=== PATIENT | female | born 1935 | race Caucasian/White ===

== ENCOUNTER 2024-01-08 14:37 | Emergency (ER) | payer OTHER, SELFPAY ==
[2024-01-08 14:49] VITALS: BP 170/64
--- NOTE | 2024-01-08 16:20 | ED.GENMED ---
History of Present Illness
<Jenifer Ribeiro PA-C - Last Filed: 01/08/24 19:40>
General
Chief Complaint: Musculo-Skeletal Complaint
Source: patient
Exam Limitations: none
Time Seen by Provider: 01/08/24 16:18
Nursing documentation reviewed up to this point in time: agreed with
Travel History
Have you had any contact with someone who has COVID-19?: No
Do you have any symptoms of coronavirus? Fever > 100 degrees, chills, cough, shortness of breath, sore throat, loss of taste or smell, muscle aches, or headache?: No
History of Present Illness
History of Present Illness:
88-year-old female with a past medical history of hypertension, bilateral hip replacements, presenting to the emergency department today with atraumatic right hip pain for the past 3 months. She states that over the past week, has been worsening
pain and wants she has a lot of pain with weightbearing, but no pain at rest. Patient denies any recent falls, any trauma to the hip. Patient denies any recent hip injections, any recent surgeries. Patient denies any fevers or chills, fatigue,
nausea or vomiting. Patient saw her primary care provider at the end of last week for this issue, who prescribed her oxycodone. Patient states that she was going on a long trip and needed something for her pain control during this time. Patient
was given oxycodone and this helped her symptoms initially, however she did have persistent pain. Patient has tried Tylenol which is also not helped her pain. Patient has not seen an orthopedist since her hip replacement many years ago.
Past History
<Jenifer Ribeiro PA-C - Last Filed: 01/08/24 19:40>
Past History
ED Past Medical History: HTN
ED Past Surgical History: None
Patient has exhibited threatening behavior?: No
Social History
Tobacco: Non-smoker
Alcohol: None
Drug: None
Review of Systems
<Jenifer Ribeiro PA-C - Last Filed: 01/08/24 19:40>
Review of Systems
All Other Systems: ROS reviewed and negative except as documented in HPI and ROS
Phy Exam
<Jenifer Ribeiro PA-C - Last Filed: 01/08/24 19:40>
Physical Exam
Physical Exam:
General: Patient is well-appearing in no acute distress
Skin: Warm and dry, no rashes or lesions overlying right hip or right superior thigh.
Cardiac: Regular rate
Peripheral Vascular: 2+ DP pulses bilaterally. No lower extremity edema
Pulm: Normal respiratory effort
Abdomen: No abdominal tenderness
Musculoskeletal: tenderness to palpation at the right hip joint, no tenderness to palpation of the right knee joint. significant pain with any range of motion
Neuro: AAOx3.
Course
<Jenifer Ribeiro PA-C - Last Filed: 01/08/24 19:40>
Orders/Labs/Results
Orders:
Orders
01/08/24 16:52
Oxycodone [Roxicodone] 5 mg PO NOW STA
CR Hip - RT w/wo Pel 2-3 Vw* Urgent
Comment:
Reason For Exam: right hip pain
Include a pelvis x-ray?: Yes
01/08/24 18:32
Vital Signs- Treatment ONCE
Frequency: Once
Comment: blood pressure check
Vital Signs
Initial and Last Documented VS:
Initial Vital Signs
Temp Pulse Resp Pulse Ox
98.4 F 55 16 98
01/08/24 14:47 01/08/24 14:47 01/08/24 14:47 01/08/24 14:47
Last Documented Vital Signs
Temp Pulse Resp BP Pulse Ox
98.4 F 49 16 178/69 98
01/08/24 14:47 01/08/24 19:14 01/08/24 14:47 01/08/24 19:14 01/08/24 14:47
<Alok Orantes DO - Last Filed: 01/08/24 18:33>
Orders/Labs/Results
Orders:
Orders
01/08/24 16:52
Oxycodone [Roxicodone] 5 mg PO NOW STA
CR Hip - RT w/wo Pel 2-3 Vw* Urgent
Comment:
Reason For Exam: right hip pain
Include a pelvis x-ray?: Yes
01/08/24 18:32
Vital Signs- Treatment ONCE
Frequency: Once
Comment: blood pressure check
Vital Signs
Initial and Last Documented VS:
Initial Vital Signs
Temp Pulse Resp Pulse Ox
98.4 F 55 16 98
01/08/24 14:47 01/08/24 14:47 01/08/24 14:47 01/08/24 14:47
Last Documented Vital Signs
Temp Pulse Resp BP Pulse Ox
98.4 F 49 16 178/69 98
01/08/24 14:47 01/08/24 19:14 01/08/24 14:47 01/08/24 19:14 01/08/24 14:47
<Jenifer Ribeiro PA-C - Last Filed: 01/08/24 19:40>
MDM/Problems Addressed
Differential Diagnosis Includes:
ddx include musculoskeletal sprain/strain, osteoarthritis, rheumatoid arthritis, hip fracture, hip dislocation
MDM/Problems Addressed:
hip pain

will obtain x-ray and treat pain
Chronic conditions affecting care: HTN
Acute Exacerbation and/or Progression of Chronic Illness: HTN
<Jenifer Ribeiro PA-C - Last Filed: 01/08/24 19:40>
*Radiology
Radiology exam reviewed: preliminary read by ED provider (no acute fracture or dislocation)
*Pulse Oximetry
Patient hypoxic: no
*Critical Care Note
Total Time (30-74mins, 75-104mins- exclusive of procedures): Not Applicable
Data Reviewed
Review of Other/Old Records Reveals: Records (Reviewed records from ER physician documentation on 02/24/2022)
Source: patient
<Jenifer Ribeiro PA-C - Last Filed: 01/08/24 19:40>
Patient Management
Escalation/DeEscalation of care consider admission/obs:
88-year-old female presenting emergency department today with atraumatic right hip pain for the past 3 months, however has been worsening for the past week. On exam, patient has no rash overlying the right hip. Patient has significant right hip
pain with palpation and with range of motion. Patient is able to ambulate with a walker without difficulty. Patient was treated with 1 oxycodone. Reevaluation, patient feels much better and wants to go home. Patient expressed some concern about
her blood pressure. We rechecked her blood pressure is still elevated, we advised primary care provider follow-up on this issue, as well as follow-up with primary for possible PT evaluation and continued therapy for her chronic hip pain. Patient
also given referral for orthopedist. Patient stable for discharge.
ED Attending Note
<Jenifer Ribeiro PA-C - Last Filed: 01/08/24 19:40>
-
Portions of this chart may have been created with voice recognition software.� Occasional wrong word or��sound alike� substitutions may have occurred due to the inherent limitations of voice recognition software.
<Alok Orantes DO - Last Filed: 01/08/24 18:33>
ED Attending Note
Patient seen and examined by attending physician: Yes
I performed the substantive portion of visit, reviewed & personally made and approve the management plan that is documented in note by myself or MICHELLE.: Yes
ED Attending Note:
I have seen and evaluated the patient with a [id number] encounter. I have spoken to the advance practicer provider and involved in the medical history, the physical exam, medical decision making.
Evaluation and management service: agree unless noted differently below.
Results interpretation: agree unless noted differently below.
Focused HPI: 88-year-old female presenting with right hip and thigh pain. Patient states has been going on for a few months now. Her PCP wrote her for oxycodone to get through the car ride for recent trip. Patient states the medicine did help.
However, the pain has reoccurred. She denies trauma or overuse
Physical exam: Sitting in bed comfortably. On my exam, patient had received oxycodone and feeling better. No tenderness to deep venous palpation
Medical Decision Making: We discussed likely musculoskeletal pain. X-ray negative for fracture or malalignment of hardware. Discussed follow-up with PCP to discuss physical therapy
Discharge Plan
Departure
Patient Disposition: Home (Routine Discharge)
Date of Disposition: 01/08/24
Time of Disposition: 18:33
Patient with high blood pressure during this ER visit?: Yes
Condition: Good
Discharge Problem:
Pain of right hip
Instructions: Hip Pain (DC), BLOOD PRESSURE
Prescriptions:
No Action
multivitamin with folic acid [Tab-A-Lisandro] 1 TABLET tablet
1 tab PO DAILY
sennosides [senna] 1 TABLET tablet
1 tab PO BID 0RF
acetaminophen 325 MG tablet
650 mg PO Q4HPRN PRN (Reason: mild pain/VEGA/temp> 100.4F) 0RF
polyethylene glycol 3350 17 GRAMS powder in packet
17 grams PO DAILY 0RF
aspirin 325 MG tablet,delayed release (DR/EC)
325 mg PO DAILY 0RF
Rx Instructions:
until 10/11 (4 weeks DVT prophylaxis per Orthopedics)
bisacodyl [OneLAX Bisacodyl] 10 MG suppository
10 mg WA DAILYPRN PRN (Reason: constipation) 0RF
docusate sodium 100 MG capsule
100 mg PO BID 0RF
alum-mag hydroxide-simeth [Mag-Al Plus] 30 ML suspension
30 ml PO Q4HPRN PRN (Reason: indigestion) 0RF
Referrals:
Andrei Olivera MD [Active] - Call in 1-3 days for appt
Leo Douglass MD [Family Provider] -
Activity Restrictions/Additional Instructions:
Please call PCP for an appointment for a follow up on your blood pressure and possible physical therapy referral.
Please return to the ER for any concerns.
Interventions
Interventions:
*General Assessment Last Done: 01/08/24 19:15
*ED COVID-19 Vaccine History Last Done: 01/08/24 14:47
*Nursing Disposition Last Done: 01/08/24 19:15
ED-Musculoskeletal Assessment Last Done: 01/08/24 17:00
Discharge Date and Time
Discharge Date/Time: 01/08/24 19:16
[2024-01-08] MEDS: ROXICODONE 5 MG PO (16:58)
[2024-01-08 19:14] VITALS: BP 178/69
== END 2024-01-08 19:16 | disposition home or self-care (01) ==
LOC: EMR 14:37
PROVIDERS: EMERGENCY PHYSICIAN Student in an Organized Health Care Education/Training Program; FAMILY PHYSICIAN Internal Medicine
DX: M25.551 Pain in right hip (principal); G89.29 Other chronic pain; I10 Essential (primary) hypertension
CPT/HCPCS: 99283; 73502

== ENCOUNTER 2024-03-06 18:22 | Inpatient (IN) | payer OTHER, SELFPAY ==
[2024-03-06] VITALS (8 sets, daily range): BP systolic 137–162; BP diastolic 45–78; BMI 20.9
[2024-03-06 15:39] LABS: % Basophils 0.4 % (0-2); % Eosinophils 1.3 % (0-6); % Immature Granulocytes 0.3 % (0-0.5); % Monocytes 7.9 % (1.7-9.3); % Neutrophils 79.1 % (42.2-75.2); Absolute Eosinophils 0.1 10^3/uL (0-0.7); Absolute Lymphocytes 0.7 10^3/uL (1.2-3.4); Absolute Monocytes 0.5 10^3/uL (0.1-0.6); Absolute Neutrophils 5.3 10^3/uL (1.4-6.5); Hematocrit 34.7 % (37.0-47.0); Hemoglobin 11.9 g/dL (12.0-16.0); Mean Corp Hgb Conc. 34.3 g/dL (33.0-37.0); Mean Corpuscular Volume 90.4 fL (81.0-99.0); Nucleated Red Blood Cells % 0 %; Platelet Count 211 10^3/uL (130-400); Red Blood Cell Count 3.84 10^6/uL (4.20-5.40); Red Cell Dist. Width 12.3 % (11.5-14.5); White Blood Cell Count 6.7 10^3/uL (4.8-10.8)
[2024-03-06 15:56] LABS: ALT (SGPT) 28 U/L (0-35); AST (SGOT) 36 U/L (14-36); Albumin 4.2 g/dl (3.5-5.0); Alkaline Phosphatase 110 U/L (38-126); Blood Urea Nitrogen 19 mg/dl (7-17); Calcium 9.3 mg/dl (8.4-10.2); Carbon Dioxide 21 mmol/L (22-30); Chloride 97 mmol/L (98-107); Glucose 98 mg/dl (70-99); Lipase 71 U/L (23-300); Potassium 4.6 mmol/L (3.5-5.1); Sodium 124 mmol/L (135-145); Total Bilirubin 0.6 mg/dl (0.2-1.3); Total Protein 6.8 g/dl (6.3-8.2); eGFR > 60.00
--- NOTE | 2024-03-06 17:22 | ED.GENMED ---
History of Present Illness
General
Chief Complaint: Abdominal Symptoms
Source: patient
Exam Limitations: none
Time Seen by Provider: 03/06/24 17:04
Travel History
Have you had any contact with someone who has COVID-19?: No
Do you have any symptoms of coronavirus? Fever > 100 degrees, chills, cough, shortness of breath, sore throat, loss of taste or smell, muscle aches, or headache?: No
History of Present Illness
History of Present Illness:
89-year-old female presents with fatigue and weakness secondary to ongoing diarrhea. She had a cat bite to her right hand about 2 weeks ago. Was placed on a 10-day course of Augmentin. Shortly after starting the Augmentin she developed diarrhea.
She describes very loose stool. She stopped her Augmentin 1 week ago today but has been having persistent diarrhea and increasing in frequency. She knows she is going 8 or 9 times a day. She denies any blood in the stool. She is nauseous without
vomiting. No abdominal pain. No fever.
Past History
Past History
ED Past Medical History: HTN
ED Past Surgical History: None
Patient has exhibited threatening behavior?: No
Social History
Tobacco: Non-smoker
Alcohol: None
Drug: None
Phy Exam
Physical Exam
Physical Exam:
General: Well-appearing female no acute respiratory distress
HEENT: Normocephalic atraumatic mucosa dry
Heart: Regular rate and rhythm no murmurs
Lungs: Clear to auscultation bilaterally no wheezing
Abdomen: Soft nontender nondistended no guarding rebound normal bowel sounds
Extremities: No cyanosis or edema
Course
Orders/Labs/Results
Orders:
Orders
03/06/24 15:21
Complete Blood Count/With Diff Urgent
Comprehensive Metabolic Panel Urgent
Lipase Urgent
03/06/24 17:17
STOOL [C difficile Antigen & Toxins] Urgent
[facility] Source: Feces/Stool
Specimen Description:
Stool Culture Urgent
[facility] Source: Feces/Stool
Specimen Description:
03/06/24 17:21
0.9% Sodium Chloride 500 ml [Nss] 500 ml IV BOLUS
Abnormal Lab Results
03/06/24
15:21
RBC 3.84 L 10^6/uL
(4.20-5.40)
Hgb 11.9 L g/dL
(12.0-16.0)
Hct 34.7 L %
(37.0-47.0)
Absolute Lymphs (auto) 0.7 L 10^3/uL
(1.2-3.4)
Neutrophils % 79.1 H %
(42.2-75.2)
Lymphocytes % 11.0 L %
(20.5-51.1)
Sodium 124 L mmol/L
(135-145)
Chloride 97 L mmol/L
(98-107)
Carbon Dioxide 21 L mmol/L
(22-30)
BUN 19 H mg/dl
(7-17)
03/06/24 15:21
03/06/24 15:21
Vital Signs
Initial and Last Documented VS:
Initial Vital Signs
Temp Pulse Resp BP Pulse Ox
97.6 F 79 16 144/74 98
03/06/24 15:09 03/06/24 15:09 03/06/24 15:09 03/06/24 15:09 03/06/24 15:09
Last Documented Vital Signs
Temp Pulse Resp BP Pulse Ox
97.6 F 79 16 144/74 98
03/06/24 15:09 03/06/24 15:09 03/06/24 15:09 03/06/24 15:03/06/24 15:09
MDM/Problems Addressed
Differential Diagnosis Includes:
Patient with fatigue and ongoing diarrhea following recent course of Augmentin. Question possible enteritis versus colitis versus C. difficile. Stool cultures ordered. Sodium noted to be 124 I suspect this is a product of lack of intake and
diarrhea. Patient does look dry on exam. Will start IV fluids slowly. Considered CT imaging however patient's abdominal exam is benign without any pain do not suspect CT would be helpful at this time.
*Critical Care Note
Total Time (30-74mins, 75-104mins- exclusive of procedures): Not Applicable
Update Note
Update Note:
Discussed with emergency room attending. Admit to hospital. Normal saline ordered.
ED Attending Note
-
Portions of this chart may have been created with voice recognition software.� Occasional wrong word or��sound alike� substitutions may have occurred due to the inherent limitations of voice recognition software.
Discharge Plan
Departure
Patient Disposition: Admit
Date of Disposition: 03/06/24
Time of Disposition: 17:28
Admit to: Med/Surg
Presentation/result/management discussed w/ accepting MD/DO: Hospitalist
Discharge Problem:
Acute hyponatremia
Prescriptions:
No Action
multivitamin with folic acid [Tab-A-Lisandro] 1 TABLET tablet
1 tab PO DAILY
sennosides [senna] 1 TABLET tablet
1 tab PO BID 0RF
acetaminophen 325 MG tablet
650 mg PO Q4HPRN PRN (Reason: mild pain/VEGA/temp> 100.4F) 0RF
polyethylene glycol 3350 17 GRAMS powder in packet
17 grams PO DAILY 0RF
aspirin 325 MG tablet,delayed release (DR/EC)
325 mg PO DAILY 0RF
Rx Instructions:
until 10/11 (4 weeks DVT prophylaxis per Orthopedics)
bisacodyl [OneLAX Bisacodyl] 10 MG suppository
10 mg ID DAILYPRN PRN (Reason: constipation) 0RF
docusate sodium 100 MG capsule
100 mg PO BID 0RF
alum-mag hydroxide-simeth [Mag-Al Plus] 30 ML suspension
30 ml PO Q4HPRN PRN (Reason: indigestion) 0RF
Referrals:
Sade Rogers MD [Family Provider] -
Interventions
Interventions:
*Risk Screen - Suicide Last Done: 03/06/24 15:09
*General Assessment Last Done: 03/06/24 15:09
*Neglect/Abuse Screening Last Done: 03/06/24 15:09
Discharge Date and Time
Print Language: IRISH
--- NOTE | 2024-03-06 17:34 | HPS.HSE ---
Addendum entered and electronically signed by Kamari Street MD 03/06/24 18:31:
I saw and examined the patient.
The BUILDING CLEANING SUPERVISOR or PA's note was reviewed and I agree with the note.
Comment:
89 years old female came in from home with weakness and diarrhea for 2 weeks. Patient had a simple cat bite and took few days of Augmentin. She started to have diarrhea and she started
No fever or worsening wound. Her hand wound healed well.
She continues to have frequent loose stools every day. Mild nausea but no vomiting. No abdominal pain
She presented to the emergency room with diarrhea. No bowel movements in the ER. She was noted to have hyponatremia with normal potassium level.
Physical Exam
General: Well Developed, Well Nourished and No Apparent Distress. Tired looking
HEENT: Normocephalic, Moist mucous membranes and Atraumatic
Respiratory: Clear
Cardiac: S1/S2 irregular with a bradycardia
GI: Soft, Non Tender, Non Distended and Normal Bowel Sounds.
Rectal: Deferred by Provider
Musculoskeletal: No Clubbing, No Cyanosis and No Edema
Skin: No Rash
Neuro: AO x 3 and Nonfocal/grossly intact
Psych: Calm
Assessment and plan
# Acute to subacute diarrhea. Nonbloody
Possible medication induced
No abdominal pain or tenderness on examination. Benign abdominal examination.
Will start supportive care. No fevers. No leukocytosis.
Start the patient on IV hydration
Stool examination to rule out infectious causes.
Hold off on antibiotic until further results.
# Bradycardia, suspect heart block, was noted on aws architect while talking to the patient
She denied palpitations or shortness of breath
No history of heart disease
No chest pain
Will get EKG
Order troponin
Hold metoprolol
Normal potassium, check magnesium
Will follow
#Hyponatremia, likely hypovolemic hyponatremia
Will replace with IV fluid and recheck
No confusion.
No history of alcohol intake
# Primary hypertension
Will hold off on lowering blood pressure while suspecting heart dysrhythmia
Will follow on monitor
# DVT prophylaxis
Total time spent to see the patient, examine the patient, review data and lab results, discuss treatment plan with patient, nursing staff, family, ER doctor around 75 minutes
Original Note:
Family Physician
-
Family Physician: Sade Rogers MD
Chief Complaint
-
Diarrhea
History of Present Illness
89-year-old female with past medical history for hypertension presented to [facility] with generalized weakness and fatigue due to ongoing diarrhea. Patient stated diarrhea for 2 weeks. She was on Augmentin for take at night. She started having
diarrhea after couple days on Augmentin. She took total of 8 days of antibiotic. For past few days it got worse. Now it is more watery. Denies blood in the stool. patient stated poor appetite since yesterday. She noted being nauseous. She is
having multiple episodes of diarrhea per day.patient denied abdominal pain .patient denied fever, chills .patient denied headache patient stated dizzy especially when she is up .patient denied chest pain or short of breath .patient denied runny
nose, congestion, cough .patient denied dysuria hematuria .
Admitting for further management
Medical History
Past Medical History
Past Medical History: Reports Other
Additional Past Medical History:
Left hip fracture
Hypertension
Past Surgical History: Reports Other
Additional Past Surgical History:
Bilateral hip replacement
Social History
Tobacco: Former Smoker
Alcohol: None
Drug: None
Family History
Family History: Not pertinent
Allergies / Home Medications
Allergies reflects when Allergies were last updated in [employer].
Home Medications with original date entered in [facility]
Allergy/Medication List:
Allergies
Allergy/AdvReac Type Severity Reaction Status Date / Time
No Known Allergies Allergy Verified 03/06/24 15:09
Home Medications
acetaminophen 325 mg tablet 650 mg (2 x 325 mg) PO Q4HPRN PRN mild pain/VEGA/temp> 100.4F 09/13/20
loperamide 2 mg tablet 2 mg PO Q4HPRN PRN diarrhea 03/06/24
metoprolol tartrate 25 mg tablet 25 mg PO BID 03/06/24
valsartan 160 mg tablet 160 mg PO DAILY 03/06/24
Review of Systems
-
Constitutional: Reports Fatigue
EENT: Reports No Symptoms
Respiratory: Reports No Symptoms
Cardiac: Reports No Symptoms
Abdomen/GI: Reports Nausea and Diarrhea
: Reports No Symptoms
Musculoskeletal: Reports No Symptoms
Skin: Reports No Symptoms
Neurological: Reports Dizzy and Weakness
Endocrine: Reports No Symptoms
Hematologic/Lymphatic: Reports No Symptoms
Psych: Reports No Symptoms
Physical Exam
Vital Signs
Vital Signs
Temp Pulse Resp BP Pulse Ox
97.6 F 79 16 144/74 98
03/06/24 15:09 03/06/24 15:09 03/06/24 15:09 03/06/24 15:09 03/06/24 15:09
Physical Exam
General: Well Developed, Well Nourished and No Apparent Distress
HEENT: NormoCephalic, Moist mucous membranes and Atraumatic
Respiratory: Clear
Cardiac: S1/S2 and Regular Rhythm; No Murmur or Rub
GI: Soft, Non Tender, Non Distended and Normal Bowel Sounds; No Organomegaly
Rectal: Deferred by Provider
Musculoskeletal: No Clubbing, No Cyanosis and No Edema
Skin: No Rash
Neuro: AO x 3 and Nonfocal/grossly intact
Psych: Calm
Laboratory Results
-
03/06/24 15:21
03/06/24 15:21
Laboratory Results
Total Bilirubin 0.6 mg/dl (0.2-1.3) 03/06/24 15:21
AST 36 U/L (14-36) 03/06/24 15:21
ALT 28 U/L (0-35) 03/06/24 15:21
Alkaline Phosphatase 110 U/L (38-126) 03/06/24 15:21
Lipase 71 U/L (23-300) 03/06/24 15:21
Data Reviewed
-
Lab Data: Labs Reviewed by me
Impression/Plan
-
# Fatigue/diarrhea likely from abx
-stool c diff and culture ordered
-Clear liquid diet, advance as tolerated.
-PT consulted
-fluids continued for hydration
# Anemia of chronic disease
-Hemoglobin stable at 11.9
-No active bleeding
-Continue to monitor
# Acute hyponatremia likely from dehydration
-Normal saline continued
-Monitor BMP in a.m.
# Essential hypertension
-Blood pressure stable
-valsartan continued
#heart block likely type 2
-obtain EKG stat
-hold metoprolol
-obtain trop
-cardiology consulted
# DVT prophylaxis
-Lovenox subcu
# CODE STATUS
-Full code
[2024-03-06] MEDS: NSS 500 IV (18:15)
[2024-03-06 19:22] LABS: Magnesium 1.6 mg/dl (1.6-2.3)
[2024-03-06] MEDS: LOVENOX SC (20:37)
--- NOTE | 2024-03-06 20:38 | PTCARENOTE ---
Received Pt from ED via stretcher. Pt able to ambulate to bed without assistance; steady on feet. AAOx3. Offers no complaints at this time. Educated pt on using the call eaton for assistance in using the bathroom to avoid falls; pt states she
understands. Refused evening lovenox. Pt bradycardic on monitor. Resting in bed will call eaton in reach.
[2024-03-06 20:39] LABS: Troponin I 0.013 ng/ml
[2024-03-06] MEDS: NSS 1000 IV (21:13)
[2024-03-07] VITALS (13 sets, daily range): BP systolic 118–145; BP diastolic 36–51; BMI 20.3
--- NOTE | 2024-03-07 00:36 | PTCARENOTE ---
Pt had rhythm changes on tele monitor. Asymptomatic. Notified RECORDS ASSOCIATE. EKG obtained.
[2024-03-07 04:25] LABS: Hemoglobin 10.3 g/dL (12.0-16.0); Mean Corp Hgb Conc. 34.3 g/dL (33.0-37.0); Mean Corpuscular Hgb 30.2 pg (27.0-31.0); Mean Platelet Volume 10.2 fL (7.4-10.4); Platelet Count 176 10^3/uL (130-400); Red Blood Cell Count 3.41 10^6/uL (4.20-5.40); Red Cell Dist. Width 12.1 % (11.5-14.5); White Blood Cell Count 4.6 10^3/uL (4.8-10.8)
[2024-03-07 04:48] LABS: Blood Urea Nitrogen 15 mg/dl (7-17); Calcium 9.2 mg/dl (8.4-10.2); Carbon Dioxide 18 mmol/L (22-30); Chloride 103 mmol/L (98-107); Estimated Creatinine Clearance 44 ml/min; Glucose 75 mg/dl (70-99); Potassium 4.3 mmol/L (3.5-5.1); Sodium 129 mmol/L (135-145); eGFR > 60.00
--- NOTE | 2024-03-07 06:33 | W.PN.HOSP.TC ---
Today's Communication/Plan
-
.
Assessment / Plan
Assessment / Plan
Physical Exam
General: Well Developed, Well Nourished and No Apparent Distress. Tired looking
HEENT: Normocephalic, Moist mucous membranes and Atraumatic
Respiratory: Clear
Cardiac: S1/S2 irregular with a bradycardia
GI: Soft, Non Tender, Non Distended and Normal Bowel Sounds.
Rectal: No rectal bleeding
Musculoskeletal: No Clubbing, No Cyanosis and No Edema
Skin: No Rash
Neuro: AO x 3 and Nonfocal/grossly intact
Psych: Calm
# Heart Block, Mobitz Type I alternating II with Bradycardia and dizziness at home
Keep NPO until cardiology sees her this morning
, suspect heart block, was noted on engine assembly supervisor while talking to the patient
She denied palpitations or shortness of breath
No history of heart disease
No chest pain
negative troponin
Check Lyme PCR
Held metoprolol
Normal potassium & Low magnesium
Order Echo for Saturday
Appreciate cardiology input
# Acute to subacute diarrhea. Nonbloody
Less frequent
Possible medication induced
No abdominal pain or tenderness on examination. Benign abdominal examination.
c/w supportive care. No fevers. No leukocytosis.
s/p IV hydration
Stool examination to rule out infectious causes.
Hold off on antibiotic until further results.
# Hypomagnesemia
replace IV
#Hyponatremia, likely hypovolemic hyponatremia
Na at 129 from 124
Will check serum osmolality and urine osmolality
s/p IV fluid
No confusion.
No history of alcohol intake
# Primary hypertension
Avoid lowering blood pressure while with heart block. Stopped Diovan.
Will follow on monitor
# DVT prophylaxis
Total time spent to see the patient, examine the patient, review data and lab results, discuss treatment plan with patient, nursing staff around 55 minutes
Anticipated Discharge: > 48 hours
Subjective/Interval History
-
Date of Service: March 07, 2024
Objective Data
-
Labs:
Laboratory Results
03/07/24
04:03
WBC 4.6 L
Hgb 10.3 L
Hct 30.0 L
Plt Count 176
Sodium 129 L
Potassium 4.3
Chloride 103
Carbon Dioxide 18 L
BUN 15
Creatinine 0.7
Glucose 75
Calcium 9.2
Vital Signs:
Vital Signs
Temp Pulse Resp BP Pulse Ox
97.7 F 41 14 145/48 97
03/07/24 04:51 03/07/24 02:00 03/07/24 02:00 03/07/24 02:00 03/07/24 02:00
--- NOTE | 2024-03-07 08:31 | CON.CAR ---
Addendum entered and electronically signed by LUIS ALFREDO Villeda 03/07/24 10:15:
I spoke with Dayne and updated him on below.
Addendum entered and electronically signed by Shakeel Reddy MD 03/07/24 09:32:
Patient seen and examined in collaboration with [employer]ING [employer]; agree with below.
-89-year-old female with hypertension presenting with weakness/diarrhea; being worked up from an infectious standpoint, results pending.
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
-Patient will need to undergo permanent pacemaker implantation, which will be preliminarily arranged for Saturday--if infectious workup is negative.
-Will obtain an echocardiogram on Saturday prior to pacemaker insertion, as the patient does have a systolic murmur on examination.
-Will hold metoprolol for now; resume post pacemaker implantation.
-Continue traffic monitor specialist.
Addendum entered and electronically signed by LUIS ALFREDO Villeda 03/07/24 09:15:
Attempted to call son to update and left VM to call back.
Original Note:
Consultation
Consultation Request
Date/Time Consultation Requested: 03/07/241820
Date/Time Consultation Performed: 03/08/24 0820
Requesting Provider: Kanwal Mayberry
Performing Provider: Rehana LOBATO for Dr. Reddy
Reason for Consultation: bradycardia
Medical History
-
Chief Complaint: weakness, diarrhea
History of Present Illness:
89 y/o female with hypertension who is here for evaluation of two weeks of weakness and diarrhea. Apparently, she was recently on Augmentin for a cat bite, which has since healed. She is admitted and seen to have hyponatremia. Cultures/stool tests
pending. We are consulted since bradycardia and type 2 heart block noted by monitor and EKG. BB is held.
Past Medical History
Past Medical History: HTN
Social History
Tobacco: Non-Smoker
Family History
Family History: Reviewed & Not Pertinent
Allergies / Home Medications
Allergy/AdvReac Type Severity Reaction Status Date / Time
No Known Allergies Allergy Verified 03/06/24 15:09
�Medication �Instructions �Recorded �Confirmed �Type
acetaminophen 325 mg tablet 650 mg (2 x 325 mg) PO Q4HPRN PRN 09/13/20 03/06/24 Rx
mild pain/VEGA/temp> 100.4F
loperamide 2 mg tablet 2 mg PO Q4HPRN PRN diarrhea 03/06/24 03/06/24 History
metoprolol tartrate 25 mg tablet 25 mg PO BID 03/06/24 03/06/24 History
valsartan 160 mg tablet 160 mg PO DAILY 03/06/24 03/06/24 History
Review of Systems
-
History Source: Patient
All other systems: Negative unless noted
Abdomen/GI: Diarrhea
Neurological: Dizzy and Weakness
Physical Exam
Vital Signs
Temp Pulse Resp BP Pulse Ox
97.7 F 40 14 127/40 96
03/07/24 04:51 03/07/24 06:00 03/07/24 06:00 03/07/24 06:00 03/07/24 06:00
Lab Results
03/07/24 04:03
03/07/24 04:03
Troponin I 0.013 ng/ml 03/06/24 19:53
Physical Exam
General: Well Developed and No Apparent Distress
HEENT: Normocephalic and Anicteric
Respiratory: Clear and Non Labored Respirations
Cardiac: Regular Rhythm (bradycardia) and Murmur (II/ systolic)
Musculoskeletal: No Edema
Skin: Warm and Dry
Neuro: AO x 3
Psych: Calm
Impression / Plan
-
Diarrhea: has been severe per patient
-stool tests pending, recently on ABX as noted. No fever, chills, or WBC count.
-work-up/management per primary team
Hyponatremia:
-improving
Bradycardia, cardiac conduction disease:
-patient seen to have 2nd degree AVB with 2:1 conduction
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
-patient will likely need pacemaker- will tentatively arrange for Saturday. Discussed procedure with patient.
-holding metoprolol, follow telemetry
-echo, TSH
-she denies syncope, but does report weakness and dizziness at times
HTN:
-on ARB and BB
-meds currently held
-monitor
Data Reviewed
-
EKG: Tracing Personally Visualized and interpreted (SR with 2nd degree AVB (mobitz 1) with 2:1 conduction)
Medical Tests (Nuc Med, Echo etc): Other (echo ordered)
Labs: Labs Reviewed by me
[2024-03-07 10:53] LABS: TSH Reflex To Free T4 3.07 uIU/ml (0.47-4.68)
[2024-03-07] MEDS: MAGNESIUM SULFATE 100 IV (11:14)
[2024-03-07 11:38] LABS: Osmolality Serum 274 mOsm/kg (275-300)
[2024-03-07] MEDS: NSS 1000 IV (12:57)
[2024-03-07] MEDS: LOVENOX 40 MG SC (17:28)
[2024-03-07 18:04] LABS: Osmolality Urine 469 mOsm/kg (300-900)
[2024-03-07 18:17] LABS: Urine Sodium 56 mmol/L (30-90)
--- NOTE | 2024-03-07 22:08 | PTCARENOTE ---
Received pt at change of shift. AAOx3. pt c/o weakness this evening and not feeling comfortable walking to the bathroom. Using BSC for BM. Still having liquid stools; ate lunch and dinner with no issues. No c/o pain in abdomen. 2nd Degree HB
Mobitz II on monitor; HR 44. Resting in bed with call eaton in reach.
[2024-03-08] VITALS (12 sets, daily range): BP systolic 115–157; BP diastolic 40–81
[2024-03-08] MEDS: NSS 1000 IV (01:53)
[2024-03-08 05:59] LABS: Blood Urea Nitrogen 16 mg/dl (7-17); Calcium 8.6 mg/dl (8.4-10.2); Carbon Dioxide 19 mmol/L (22-30); Chloride 107 mmol/L (98-107); Estimated Creatinine Clearance 38 ml/min; Glucose 93 mg/dl (70-99); Magnesium 1.8 mg/dl (1.6-2.3); Potassium 4.3 mmol/L (3.5-5.1); Sodium 130 mmol/L (135-145); eGFR > 60.00
--- NOTE | 2024-03-08 06:34 | W.PN.HOSP.TC ---
Today's Communication/Plan
-
.
Assessment / Plan
Assessment / Plan
Physical Exam
General: Well Developed, Well Nourished and No Apparent Distress. Tired looking
HEENT: Normocephalic, Moist mucous membranes and Atraumatic
Respiratory: Clear
Cardiac: S1/S2 irregular with a bradycardia
GI: Soft, Non Tender, Non Distended and Normal Bowel Sounds.
Rectal: No rectal bleeding
Musculoskeletal: No Clubbing, No Cyanosis and No Edema
Skin: No Rash
Neuro: AO x 3 and Nonfocal/grossly intact
Psych: Calm
# Heart Block, Mobitz Type I alternating II with Bradycardia and dizziness at home
Plan for pacemaker implantation on Saturday
She denied palpitations or shortness of breath
No history of heart disease
No chest pain
negative troponin
Checked Lyme, pending
Held metoprolol
Normal potassium & Low magnesium ( replaced)
Order Echo for Saturday
Appreciate cardiology input
# Acute to subacute diarrhea. Nonbloody
Less frequent now
Possible medication induced or secretory diarrhea
No abdominal pain or tenderness on examination. Benign abdominal examination.
c/w supportive care. No fevers. No leukocytosis.
s/p IV hydration
Stool examination negative for C diff. Further testing is pending. Start on Imodium, empiric Flagyl.
# Hypomagnesemia
replaced IV, c/w oral Magnesium
#Hyponatremia, likely hypovolemic hyponatremia
Na up to 130
Admission Na 124
Low serum osmolality and high normal urine osmolality , Urine sodium 56
( c/w SIADH)
s/p IV fluid
No confusion.
No history of alcohol intake
# Primary hypertension
Avoid lowering blood pressure while with heart block. Stopped Diovan.
Will follow on monitor
# DVT prophylaxis
Total time spent to see the patient, examine the patient, review data and lab results, discuss treatment plan with patient, nursing staff around 57 minutes
Anticipated Discharge: > 48 hours
Subjective/Interval History
-
Date of Service: March 08, 2024
No chest pain
No sob
No abd pain
Still loose stools
Objective Data
-
Labs:
Laboratory Results
03/08/24
05:11
Sodium 130 L
Potassium 4.3
Chloride 107
Carbon Dioxide 19 L
BUN 16
Creatinine 0.8
Glucose 93
Calcium 8.6
Vital Signs:
Vital Signs
Temp Pulse Resp BP Pulse Ox
98.7 F 40 16 135/49 97
03/08/24 03:15 03/08/24 04:00 03/08/24 04:00 03/08/24 04:00 03/07/24 14:00
I&O
03/06/24 03/07/24 03/08/24
06:59 06:59 06:59
Intake Total 2340 / 2340
Output Total 250 / 250
Balance 2089
[2024-03-08] MEDS: FLAGYL 500 MG 100 IV ×3 (08:14→23:46)
[2024-03-08] MEDS: IMODIUM 2 MG PO (08:14)
--- NOTE | 2024-03-08 10:39 | W.PN.CD ---
Today's Communication / Plan
-
Diarrhea:
-Does not appear to be infectious; C. difficile negative, no fever, chills, or WBC count.
Mobitz 2 heart block:
-Heart rates have been 40 bpm; also has alternating LBBB and RBBB.
-Patient will be evaluated by EP Cardiology tomorrow morning; if diarrhea has improved, will undergo permanent pacemaker implantation tomorrow.
-Patient's son (Dayne) updated this morning.
-Will keep NPO after midnight.
Heart murmur:
-3/6 systolic murmur.
-Will obtain echocardiogram tomorrow morning prior to any procedures.
Impression / Plan
-
Diarrhea:
-Does not appear to be infectious; C. difficile negative, no fever, chills, or WBC count.
-Continue workup/management as per primary team.
Mobitz 2 heart block:
-Heart rates have been 40 bpm; also has alternating LBBB and RBBB.
-Patient denies syncope, but does report weakness and dizziness at times
-Patient will be evaluated by EP Cardiology tomorrow morning; if diarrhea has improved, will undergo permanent pacemaker implantation tomorrow.
-Patient's son (Dayne) updated this morning.
-Will keep NPO after midnight.
Heart murmur:
-3/6 systolic murmur.
-Will obtain echocardiogram tomorrow morning prior to any procedures.
Hyponatremia:
-improving
HTN:
-on ARB and BB as outpatient
-meds currently held
-Blood pressure fairly controlled; continue to monitor
Physical Exam
Vital Signs/Labs
Vital Signs
Temp Pulse Resp BP Pulse Ox
98.2 F 40 16 135/49 97
03/08/24 07:35 03/08/24 04:00 03/08/24 04:00 03/08/24 04:00 03/07/24 14:00
03/07/24 03/08/24 03/09/24
06:59 06:59 06:59
Actual Weight 50.4 kg
03/07/24 04:03
03/08/24 05:11
Magnesium 1.8 mg/dl (1.6-2.3) 03/08/24 05:11
LAB Results
03/06/24
19:53
Troponin I 0.013
Physical Exam
Constitutional: No acute distress and Comfortable
EENT: Anicteric
Cardiovascular: Rhythm & rate is regular (Bradycardic, ectopy present), Pedal edema is absent, Systolic murmur present (/) and S1S2 is normal
Respiratory: Respiratory effort normal and Lungs clear to auscul.
GI: Soft
Neuro/Psych: AO x 3
Other: Skin (Warm, dry, intact)
Data Reviewed
-
Date of Service: March 08, 2024
EKG: Tracing Personally Visualized and interpreted (Telemetry: Mobitz 2 heart block with 2:1 conduction at 40 bpm)
Medical Tests (PFT, Pathology etc): Discussed with Patient and Discussed with Family (Son, Dayne via telephone)
Labs: Labs Reviewed by me
[2024-03-08] MEDS: LOVENOX 40 MG SC (18:14)
[2024-03-09] VITALS (10 sets, daily range): BP systolic 105–172; BP diastolic 42–76
[2024-03-09 05:43] LABS: Blood Urea Nitrogen 15 mg/dl (7-17); Calcium 9.1 mg/dl (8.4-10.2); Carbon Dioxide 17 mmol/L (22-30); Chloride 109 mmol/L (98-107); Estimated Creatinine Clearance 51 ml/min; Glucose 91 mg/dl (70-99); Potassium 4.4 mmol/L (3.5-5.1); Sodium 130 mmol/L (135-145); eGFR > 60.00
[2024-03-09] MEDS: MAGNESIUM OXIDE 500 MG PO (08:43)
--- NOTE | 2024-03-09 09:56 | W.PN.CD ---
Today's Communication / Plan
-
EP Note
Review Echo today
Pacer prior to hospital discharge for what appears to be symptomatic second degree heart block
Impression / Plan
-
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
- Pacemaker prior to hospital discharge
- Checking on timing base on schedule
Heart murmur:
-01/07 systolic murmur
- Echo today
Diarrhea
Hyponatremia
HTN
Subjective:
No CP or dyspnea. No syncope. Has had dizziness, some orthostatic component but fairly new and therefore I am quite concerned she has symptomatic 2nd degree heart block
Physical Exam
Vital Signs/Labs
Vital Signs
Temp Pulse Resp BP Pulse Ox
97.4 F 66 24 172/65 98
03/09/24 07:46 03/09/24 08:00 03/09/24 08:00 03/09/24 08:00 03/09/24 08:00
03/07/24 04:03
03/09/24 04:45
Magnesium 1.8 mg/dl (1.6-2.3) 03/08/24 05:11
LAB Results
03/06/24
19:53
Troponin I 0.013
Physical Exam
Constitutional: No acute distress
EENT: Anicteric
Cardiovascular: Rhythm & rate is regular, Pedal edema is absent, Systolic murmur present and S1S2 is normal
Respiratory: Respiratory effort normal, Lungs clear to auscul. and Wheeze Absent
GI: Soft and Distention absent
Neuro/Psych: AO x 3
Data Reviewed
-
Date of Service: March 09, 2024
--- NOTE | 2024-03-09 10:40 | W.PN.HOSP.TC ---
Addendum entered and electronically signed by Aida Henao MD 03/09/24 14:36:
pt seen and examined independently--agree with plan set forth by Dr. Devine
GENERAL: well developed, well nourished, female in no apparent distress
HEENT: NC/AT--no O2
HEART: regular rate and rhythm, +S1, +S2, 2/6 MARIA GUADALUPE
LUNGS : clear to auscultation bilaterally
ABDOM: soft, nontender, nondistended, + bowel sounds
EXT: no cyanosis, clubbing, or edema
NEUROLOGIC: grossly intact
Acute diarrhea--likely due to augmentin--resolved--no signs of infection--cont Imodium as needed
Symptomatic Mobitz 2 heart block and 2:1 AV block --apprec cards--for pacemaker this afternoon--Echocardiogram within normal limits--no valvular heart disease--Held metoprolol--Lyme pending
hyponatremia--Suspect SIADH--Sodium 130,improved from admission 124--Patient appears euvolemic
Hypomagnesemia resolved
Essential Hypertension--Hold valsartan
DVT prophylaxis-Lovenox
Code status--Full Code
Original Note:
Today's Communication/Plan
-
Pacemaker placement today
echocardiogram
Assessment / Plan
Assessment / Plan
Impression
Acute diarrhea
Mobitz type II heart block
Hypovolemic hyponatremia
Hypomagnesemia
Hypertension
Assessment and plan
Acute diarrhea
Possibly medication induced vs secretory diarrhea(toxin induced)
Diarrhea has resolved, no loose stools today
Continue supportive care
IV fluids and Imodium
Flagyl discontinued
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
Cardiology following
Pacemaker placement plan today in the afternoon since diarrhea has resolved
Echocardiogram scheduled today for 3/6 systolic murmur
Held metoprolol
Lyme pending
Denies chest pain,, shortness of breath , palpitations
Hypovolemic hyponatremia
Suspect SIADH
Sodium 130,improved from admission 124
Patient appears euvolemic
BMP in a.m.
Hypomagnesemia resolved
Hypertension
Hold valsartan
Monitor blood pressure
DVT prophylaxis-Lovenox
Anticipated Discharge: 24 - 48 hours
Subjective/Interval History
-
Date of Service: March 09, 2024
Patient denies shortness of breath, chest pain. Patient reports that she might have some swelling in fingers because her ring seems tight.
Objective Data
-
Labs:
Laboratory Results
03/09/24
04:45
Sodium 130 L
Potassium 4.4
Chloride 109 H
Carbon Dioxide 17 L
BUN 15
Creatinine 0.6
Glucose 91
Calcium 9.1
Vital Signs:
Vital Signs
Temp Pulse Resp BP Pulse Ox
97.4 F 42 19 130/46 98
03/09/24 07:46 03/09/24 10:00 03/09/24 10:00 03/09/24 10:00 03/09/24 08:00
I&O
03/08/24 03/09/24 03/10/24
06:59 06:59 06:59
Intake Total 2340 / 2340 900 / 900
Output Total 250 / 250
Balance 2089 / 2089 900 / 900
Review of Systems
-
History Source: Patient and Family
All other systems: Reviewed and negative (Except mentioned)
Constitutional: Reports Other ('Tightness and ring finger')
Physical Exam
-
General: No Apparent Distress and Comfortable
HEENT: Normocephalic and Atraumatic
Respiratory: Clear to Auscultation
Cardiac: Regular Rhythm, S1/S2 and Bradycardic
Breast: Deferred by me
GI: Soft, Nontender and Nondistended
Musculoskeletal: No Edema
Neuro: AO x 3
Psych: Calm
[2024-03-09 16:26] LABS: Lyme Antibody Screen, EIA Negative (Negative)
[2024-03-09] MEDS: LOVENOX 30 MG SC (17:51)
--- NOTE | 2024-03-09 22:06 | TRANSFER ---
pt IVU level of care, report given to IVU nurse and patient transferred to 2248 with all belongings without issues.
--- NOTE | 2024-03-09 22:59 | PTCARENOTE ---
received from IMU as a IVU tx into 2248- stand by transfer from wheel chair to the bed. pt without complaints.
[2024-03-10] VITALS (19 sets, daily range): BP systolic 139–185; BP diastolic 42–143
[2024-03-10] MEDS: TYLENOL 650 MG PO (06:27)
[2024-03-10 06:46] LABS: Blood Urea Nitrogen 14 mg/dl (7-17); Calcium 9.4 mg/dl (8.4-10.2); Carbon Dioxide 21 mmol/L (22-30); Chloride 104 mmol/L (98-107); Estimated Creatinine Clearance 44 ml/min; Glucose 87 mg/dl (70-99); Potassium 4.6 mmol/L (3.5-5.1); Sodium 132 mmol/L (135-145); eGFR > 60.00
--- NOTE | 2024-03-10 07:35 | PTCARENOTE ---
Pt wiped and prepped for PPM. IV placed in the L AC.
--- NOTE | 2024-03-10 09:29 | CM ---
recieved pt to IVU last evening, spoke to pt, son and DIL in room, she is prev indep lives currently with her son (but goes back to her home too) in a 3 story home with 10 steps to enter. she denies any dc planning needs. she uses a cane and walker.
plan is for dc to home, with her son, when medically stable.
--- NOTE | 2024-03-10 12:55 | W.PN.HOSP.TC ---
Addendum entered and electronically signed by Aida Henao MD 03/10/24 15:56:
pt seen and examined independently--agree with plan set forth by Dr. Devine
GENERAL: well developed, well nourished, female in no apparent distress
HEENT: NC/AT--no O2
HEART: regular rate and rhythm, +S1, +S2, 2/6 MARIA GUADALUPE--bradycardic
LUNGS : clear to auscultation bilaterally
ABDOM: soft, nontender, nondistended, + bowel sounds
EXT: no cyanosis, clubbing, or edema
NEUROLOGIC: grossly intact
Acute diarrhea--likely due to augmentin--resolved--no signs of infection--cont Imodium as needed
Symptomatic Mobitz 2 heart block and 2:1 AV block --apprec cards--for pacemaker--Echocardiogram within normal limits--no valvular heart disease--Held metoprolol--Lyme negative
hyponatremia--Suspect SIADH--Sodium 132, improved from admission 124--Patient appears euvolemic
Hypomagnesemia resolved
Essential Hypertension--Hold valsartan
DVT prophylaxis-Lovenox
Code status--Full Code
Original Note:
Today's Communication/Plan
-
pacemaker placement today
clear liquids
Assessment / Plan
Assessment / Plan
Impression
Acute diarrhea
Mobitz type II heart block
Hypovolemic hyponatremia
Hypomagnesemia
Hypertension
Assessment and plan
Acute diarrhea
Possibly medication induced vs secretory diarrhea(toxin induced)
Diarrhea has resolved, no loose stools today
Continue supportive care
IV fluids and Imodium
Flagyl discontinued
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
Cardiology following
Pacemaker placement plan today later in the afternoon
Clear liquid diet
Held metoprolol
Lyme negative
Denies chest pain,, shortness of breath , palpitations
Hypovolemic hyponatremia
Na improving
Patient appears euvolemic
BMP in a.m.
Hypomagnesemia resolved
Hypertension
Hold valsartan
Monitor blood pressure
DVT prophylaxis-Lovenox
Anticipated Discharge: 24 - 48 hours
Subjective/Interval History
-
Date of Service: March 10, 2024
Patient denies SOB, CP.
Objective Data
-
Labs:
Laboratory Results
03/10/24
05:43
Sodium 132 L
Potassium 4.6
Chloride 104
Carbon Dioxide 21 L
BUN 14
Creatinine 0.7
Glucose 87
Calcium 9.4
Vital Signs:
Vital Signs
Temp Pulse Resp BP Pulse Ox
98.1 F 45 16 145/73 99
03/10/24 11:25 03/10/24 11:25 03/10/24 11:25 03/10/24 07:42 03/10/24 11:25
I&O
03/09/24 03/10/24 03/11/24
06:59 06:59 06:59
Intake Total 900 / 900
Balance 900 / 900
Review of Systems
-
History Source: Patient
All other systems: Reviewed and negative
Physical Exam
-
General: Comfortable and Conversant
HEENT: Normocephalic and Atraumatic
Respiratory: Clear to Auscultation
Cardiac: S1/S2 and Murmur (systolic murmur)
GI: Soft, Nontender and Nondistended
Musculoskeletal: No Edema
Neuro: AO x 3
Psych: Calm
Data Reviewed
-
Medical Tests (Nuc Med, Echo etc): Report Reviewed by me and Discussed with Physician
--- NOTE | 2024-03-10 17:19 | W.PN.CD ---
Today's Communication / Plan
-
- PPM today
Impression / Plan
-
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
- Pacemaker TODAY
- Checking on timing base on schedule
Heart murmur:
-01/07 systolic murmur
- Echo- 03/09/24: lvef 60%- NORMAL echo.
Diarrhea
Hyponatremia
HTN
Subjective:
No CP or dyspnea. No syncope. symptomatic with bradycardia.
Physical Exam
Vital Signs/Labs
Vital Signs
Temp Pulse Resp BP Pulse Ox
97.8 F 45 16 145/73 98
03/10/24 15:34 03/10/24 15:34 03/10/24 15:34 03/10/24 07:42 03/10/24 15:34
03/07/24 04:03
03/10/24 05:43
Magnesium 1.8 mg/dl (1.6-2.3) 03/08/24 05:11
Physical Exam
Constitutional: No acute distress and Comfortable
EENT: Anicteric and Moist mucous membranes
Cardiovascular: Rhythm & rate is regular, Pedal edema is absent and JVD pressure is normal
Respiratory: Respiratory effort normal, Lungs clear to auscul. and Crackles Absent
GI: Soft, Non tender and Normal bowel sounds
Neuro/Psych: Alert, Oriented and AO x 3
Other: Cardiac Device Site
Data Reviewed
-
Date of Service: March 10, 2024
Medical Decision Making: Reviewed Test Results, Test Interpretation and Review of Case with other Provider
EKG: Tracing Personally Visualized and interpreted
Echo: Report Reviewed by me
Labs: Labs Reviewed by me
Old Records: Reviewed
--- NOTE | 2024-03-10 17:21 | ITS.CL.PACE ---
[employer] - Pacemaker Implant
Pacemaker Implant
Procedure Report:
Dual Chamber Pacemaker Placement:
Ms. Rosales is a very pleasant 89 yrs old woman with intermittent complete heart block with severe symptomatic bradycardia and is recommended for PPM placement.�
Indications: High degree AV block
Date of the Procedure: 03/10/24
Pre-Operative Diagnosis: Complete heart block
Post-Operative Diagnosis: Complete heart block
Procedure Performed: DUAL CHAMBER PACEMAKER IMPLANTATION
Performing Physician:
Noris Gaspar MD
Assistants:
EP staff
Anesthesia:
See anesthesia report
Pre-operative antibiotics:
Ancef
Detailed Description of the Procedure:
The patient was identified using hospital identification and informed consent obtained for the procedure. The risks were explained including, but not limited to: Bleeding, infection, arrhythmia, stroke, vascular/cardiac/lung puncture, surgery,
pacemaker dependency/device malfunction. All questions were answered.
The patient was brought to the electrophysiology laboratory in stable condition in fasting state. Continuous electrocardiographic and hemodynamic monitoring was initiated.
The initial rhythm was 2:1 AV block.
A surgical pause and time out was performed immediately prior to the procedure with review of her medical history, recent labs, allergies and medications with site of procedure identified and consent noted in the chart. Antibiotics pre operatively
given. All team members concurred.
The procedure site was meticulously prepared with surgical scrub and allowed to dry with no pooling. Sterile draping was applied to cover the procedure site. The image intensifier was draped with sterile bag and positioned over the patient.
The left infraclavicular region was prepped and draped in the usual sterile fashion. Local anesthesia was administered subcutaneously using 1% lidocaine / Bupivacaine. The left cephalic vein cutdown was performed with an incision at the
delto-pectoral groove, and vascular sheaths were introduced for lead access. These were advanced into the right ventricle and the right atrium.
The right ventricular lead was secured in position with an active fixation technique at the apical septal location.
The RA lead was attached in the right atrial appendage with passive fixation.
There was excellent sensing, pacing, and impedance from the leads, with no diaphragmatic stimulation at 10 V output.�Bovie cautery, antibiotics, and fluoroscopy were used.
The sheaths were withdrawn, and the thresholds remained acceptable. The leads were secured in position at the venous entry site with 2-0 Ethibond. A pocket was fashioned contiguous to the incision. The electrode terminals were connected to the pulse
generator, which was placed into the pocket. The wound was irrigated thoroughly with antibiotic solution.
The wound was closed in 3 layers using 2-0 V loc then two layers of 4-0 V loc sutures to the dermis. Steri-strips were applied externally and covered with Aquacel bandage.
Procedure End:
The procedure was tolerated well.
Estimated Blood loss:
10 cc
Specimens Removed:
No cultures and no specimens were obtained. No intraoperative pathology was identified.
Fluoro time:
0.4 min / 0.56mGy
Urine output:
None
Packs / Drains/ Tubes:
None
Instrument / Sponge Count Correct:
Yes
Complications of the Procedure:
None
Condition of Patient at Time of Transfer:
Hemodynamically stable with no neurological or vascular compromise.
Device information:�
Generator: Cleverbug; Model: [id number]; Serial # [id number]�
Atrial Lead:
Cleverbug; Model: 4574-45; Serial # [id number]
Measured data in the right atrium was sensing of 2.3 mV, impedance of 703 ohms and threshold of 0.5 V at 0.4ms.
RV Lead:
Medtronic; Model: 5076-52; Serial # [id number]
Measured data in the RV lead was sensing of 3.6mV, impedance of 741 ohms and threshold of 0.5 V at 0.4ms�
Max parameter settings were AAIR < = > DDDR 60-130 bpm. �
����������� Mode Switch: On
����������� Paced AV interval: 180ms
����������� Sensed AV interval: 150 ms.
����������� Rate Adaptive A-V Interval: Off
Output parameters:
����������������������� Amplitude (V)������������� Pulse Width (ms)������� Sensitivity (mV)
����������� RA: ���� 3.5 ����������������� ����������� 0.4������������������ ����������� 0.3
����������� RV:����� 3.5������������������ ����������� 0.4������������������ ����������� 0.9
Summary:
Successful implantation of MRI compatible dual chamber pacemaker
Results/Recommendations:
-Please follow up CXR�
1. Please provide patient with adequate pain control�
Instructions to be given to patient:�
- Please follow up with [facility] at [address] [place] [address] ([phone]) to get your wound checked within 14 days of your discharge.
- Do not wet incision site until after it is evaluated at cardiology clinic. No soaking or bath until then. Showers or Sponge baths are OK.�Dab dry the area after a shower.
- Do not lift left elbow above shoulder, particularly with sudden jerking movements, for 1 month�
- Do not lift anything weighing more than 10 pounds with the left arm for 1 month�
- If you notice any fevers, shortness of breath, lightheadedness, chest pain, or worsening swelling in the wound site, please contact the arrhythmia clinic, contact your c4 planner, or present to the hospital for evaluation.�
Noris Gaspar MD
Electrophysiology
[2024-03-10] MEDS: MAGNESIUM OXIDE PO (18:42)
[2024-03-10] MEDS: MAGNESIUM OXIDE 500 MG PO (18:47)
[2024-03-10] MEDS: LOVENOX 30 MG SC (18:47)
--- NOTE | 2024-03-10 18:58 | PTCARENOTE ---
Received pt post PPM. Dual chamber PPM at left ACW with aquacel intact. VSS, EKG obtained. CXR to be done. Will monitor.
[2024-03-10] MEDS: ANCEF 5 IV (22:02)
[2024-03-10] MEDS: DIOVAN 80 MG PO (23:34)
[2024-03-11] VITALS (9 sets, daily range): BP systolic 127–186; BP diastolic 70–98
--- NOTE | 2024-03-11 00:01 | PTCARENOTE ---
pt SBP has been running high >160. [employer] electronic gluer notified and order valsartan PO. pt is asymptomatic. V-paced in the monitor.
[2024-03-11] MEDS: TYLENOL 650 MG PO (01:47)
[2024-03-11 05:41] LABS: Hematocrit 32.6 % (37.0-47.0); Hemoglobin 11.3 g/dL (12.0-16.0); Mean Corp Hgb Conc. 34.7 g/dL (33.0-37.0); Mean Corpuscular Hgb 30.1 pg (27.0-31.0); Mean Corpuscular Volume 86.7 fL (81.0-99.0); Mean Platelet Volume 9.6 fL (7.4-10.4); Platelet Count 246 10^3/uL (130-400); Red Blood Cell Count 3.76 10^6/uL (4.20-5.40); Red Cell Dist. Width 12.7 % (11.5-14.5); White Blood Cell Count 7.1 10^3/uL (4.8-10.8)
[2024-03-11 05:58] LABS: Blood Urea Nitrogen 14 mg/dl (7-17); Calcium 9.7 mg/dl (8.4-10.2); Carbon Dioxide 24 mmol/L (22-30); Chloride 100 mmol/L (98-107); Estimated Creatinine Clearance 44 ml/min; Glucose 99 mg/dl (70-99); Potassium 4.2 mmol/L (3.5-5.1); Sodium 131 mmol/L (135-145); eGFR > 60.00
[2024-03-11] MEDS: ANCEF 5 IV (06:12)
[2024-03-11] MEDS: MAGNESIUM OXIDE 500 MG PO (07:39)
--- NOTE | 2024-03-11 08:12 | W.PN.CD ---
Today's Communication / Plan
-
- Stable for discharge from cardiac stand point.
Impression / Plan
-
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
- s/o Medtronic dual chamber Pacemaker - 03/10/24 - MRI conditional.
- Now A sensed and V paced rhtyhm
HTN
- BP is elevated
- resume home meds - Valsartan 160 mg QD and Topril 25 mg BID
Heart murmur:
-01/07 systolic murmur
- Echo- 03/09/24: lvef 60%- NORMAL echo.
Diarrhea
Hyponatremia
HTN
Subjective:
No CP or dyspnea. No syncope. feeling much better.
Physical Exam
Vital Signs/Labs
Vital Signs
Temp Pulse Resp BP Pulse Ox
98 F 81 16 150/75 95
03/11/24 04:35 03/11/24 06:00 03/10/24 15:34 03/11/24 06:00 03/10/24 20:30
03/11/24 05:26
03/11/24 05:26
Magnesium 1.8 mg/dl (1.6-2.3) 03/08/24 05:11
Physical Exam
Constitutional: No acute distress and Comfortable
EENT: Anicteric and Moist mucous membranes
Cardiovascular: Rhythm & rate is regular, Pedal edema is absent and JVD pressure is normal
Respiratory: Respiratory effort normal, Lungs clear to auscul., Wheeze Absent and Crackles Absent
GI: Soft and Non tender
Neuro/Psych: Alert, Oriented and AO x 3
Other: Cardiac Device Site
Data Reviewed
-
Date of Service: March 11, 2024
Medical Decision Making: Reviewed Test Results, Test Interpretation and Review of Case with other Provider
EKG: Tracing Personally Visualized and interpreted
Echo: Report Reviewed by me
Labs: Labs Reviewed by me
Old Records: Reviewed
[2024-03-11] MEDS: DIOVAN 160 MG PO (09:57)
[2024-03-11] MEDS: TOPROL XL 25 MG PO (09:57)
--- NOTE | 2024-03-11 10:02 | PTCARENOTE ---
Assumed care at 0700. AOx4. VPaced on telemetry, HR 80s. BP elevated this AM, 165/77. Dr. Gaspar made aware during rounds. Home BP meds restarted and given, see MAR. Dressing to left upper chest dry, intact. Encouraged to make needs known.
--- NOTE | 2024-03-11 12:05 | W.PN.HOSP.TC ---
Addendum entered and electronically signed by Aida Henao MD 03/11/24 12:59:
pt seen and examined independently--agree with plan set forth by Dr. Devine
GENERAL: well developed, well nourished, female in no apparent distress
HEENT: NC/AT--no O2
HEART: regular rate and rhythm, +S1, +S2, 2/6 MARIA GUADALUPE--s/p pacemaker placement
LUNGS : clear to auscultation bilaterally
ABDOM: soft, nontender, nondistended, + bowel sounds
EXT: no cyanosis, clubbing, or edema
NEUROLOGIC: grossly intact
Acute diarrhea--likely due to augmentin--resolved--no signs of infection--cont Imodium as needed
Symptomatic Mobitz 2 heart block and 2:1 AV block --apprec cards--s/p pacemaker--Echocardiogram within normal limits--no valvular heart disease--Held metoprolol--Lyme negative
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
Hypomagnesemia resolved
Essential Hypertension--Hold valsartan
DVT prophylaxis-Lovenox
Code status--Full Code
ok for d/c
Original Note:
Today's Communication/Plan
-
discharge today
Assessment / Plan
Assessment / Plan
Impression
Acute diarrhea
Mobitz type II heart block
Hypovolemic hyponatremia
Hypomagnesemia
Hypertension
Assessment and plan
Acute diarrhea- resolved
Possibly medication induced vs secretory diarrhea(toxin induced)
Diarrhea has resolved, no loose stools today
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
Cardiology following
Pacemaker placement 03/11, HR improved
Resume on metoprolol 25 mg BID and valsartan 160 QD
Denies chest pain, shortness of breath , palpitations
Wound check in one week with assistant operator, Dr Gaspar outpatient.
Hypovolemic hyponatremia
Na improving
Patient appears euvolemic
BMP in a.m.
Hypomagnesemia resolved
Hypertension
resume valsartan
Monitor blood pressure
DVT prophylaxis-Lovenox
Anticipated Discharge: Today
Subjective/Interval History
-
Date of Service: March 11, 2024
Denies, CP, SOB
Objective Data
-
Labs:
Laboratory Results
03/11/24
05:26
WBC 7.1
Hgb 11.3 L
Hct 32.6 L
Plt Count 246 D
Sodium 131 L
Potassium 4.2
Chloride 100
Carbon Dioxide 24
BUN 14
Creatinine 0.7
Glucose 99
Calcium 9.7
Vital Signs:
Vital Signs
Temp Pulse Resp BP Pulse Ox
97.8 F 80 16 127/70 96
03/11/24 07:35 03/11/24 10:00 03/11/24 07:35 03/11/24 09:54 03/11/24 07:35
I&O
03/10/24 03/11/24 03/12/24
06:59 06:59 06:59
Intake Total 120 / 120 480 / 480
Balance 120 / 120 480 / 480
Review of Systems
-
History Source: Patient
All other systems: Reviewed and negative
Physical Exam
-
General: Comfortable and Conversant
HEENT: Normocephalic and Atraumatic
Respiratory: Clear to Auscultation
Cardiac: Regular Rhythm and S1/S2
GI: Soft and Nontender
Musculoskeletal: No Edema
Psych: Calm
Data Reviewed
-
Medical Tests (Nuc Med, Echo etc): Report Reviewed by me and Discussed with Physician
Labs: Labs Reviewed by me and Discussed with Physician
--- NOTE | 2024-03-11 13:22 | CM ---
CM following for DC planning needs.
Met w/ patient at bedside.
Pt. feels well and is anticipating DC to home today. She reports that he has transport home.
Pt. is functionally indep. at baseline.
There are no DC needs identified.
Plan is for home, no needs.
--- NOTE | 2024-03-11 13:27 | W.DCSUMMARY ---
Addendum entered and electronically signed by Aida Henao MD 03/11/24 14:24:
Fully read and agree with d/c summary as documented by Dr. Devine.
Original Note:
Discharge Summary
Discharge Data
Date of Admission: 03/06/24
Date of Discharge: 03/11/24
-
Pending Results: No
Hospital Course
89-year-old female who presented to the ED with acute diarrhea and fatigue. Patient has been having diarrhea for 2 weeks. She had taken an antibiotic a few days before diarrhea started for a cat bite. In the ED vitals were normal patient was
mildly dehydrated and was started on IV fluids. Cultures were ordered for C. diff day which were negative. Hyponatremia was noted with possible decreased intake of fluids. On cardiac monitoring patient was bradycardic. EKG was done which showed
Mobitz type II heart block. Metoprolol was held. For acute diarrhea patient was treated with IV loperamide and short course of Flagyl. In 24 to 48 hours patient's diarrhea improved. We continued IV fluids. Cardiology to was involved and the
plan for pacemaker placement as patient's heart rate below 50. Patient denies shortness of breath, chest pain, troponin was negative. Valsartan was held prior to the procedure to avoid lowering blood pressure while the patient was in heart block.
On 03/10 pacemaker placement was done without any complications. Hyponatremia improved, heart rate was around 90s. On the day of discharge vital signs are stable, patient denies any complaints.
Acute diarrhea
Resolved
Mobitz type II heart block s/p pacemaker implant
Resume metoprolol succinate 25 mg twice daily
Resume losartan 160 mg once a day
Follow-up with cardiology in 1 week for wound check
Hypovolemic hyponatremia
Resolving
BMP in 1 week
Follow-up with outpatient primary care
Hypertension
resume valsartan
Discharge Plan
-
Patient Disposition: Home (Routine Discharge)
Discharge Diagnosis/Procedures: Mobitz type II heart block s/p Pacemaker implant
Acute diarrhea
Hypovolemic hyponatremia
Hypomagnesemia
Hypertension
Condition: Good
Diet: Low Sodium
Activity: No restrictions
Driving Restrictions: As prior to admission
Bathing Restrictions: None
Stand Alone Forms: DC Inst - Implanted Device
Referrals:
Eryn Newton CRNP [Specified Professional Personl] - 03/18/24 1:00 pm (Post device incision check appointment)
Sade Rogers MD [Family Provider] - in less than 1 week
Additional Discharge Medication Instructions: [facility], [facility]- [facility] office address
Resume metoprolol succinate 25 mg 1 tablet twice daily
Resume losartan 160 mg 1 tablet once daily
Follow-up in 1 week with cardiology for wound check. Please do not remove the bandage by yourself.
Prescriptions:
Continued
acetaminophen 325 MG tablet
650 mg PO Q4HPRN PRN (Reason: mild pain/VEGA/temp> 100.4F) 0RF
loperamide 2 mg Tablet
2 mg PO Q4HPRN PRN (Reason: diarrhea)
valsartan 160 mg Tablet
160 mg PO DAILY
metoprolol tartrate 25 mg Tablet
25 mg PO BID
Discharge Orders:
Discharge Patient (As Directed); Ordered 03/11/24
Ordered By: Blake Devine
Care Plan Goals
Care Plan Goals:
Problem: Readiness for enhanced knowledge related to diagnosis and treatment plan
Goal: Understand your diagnosis and treatment plan needs, including medications if applicable.
Instructions: Know your diagnosis, underlying causes and treatment plan options, including medications if applicable. Consult with your health care team to learn about your diagnosis and treatment plan, including medications if applicable.
Discharge Date and Time
Print Language: [place]
== END 2024-03-11 16:49 | disposition home or self-care (01) | DRG 243 ==
LOC: IVU 18:22
PROVIDERS: Emergency Medicine; Internal Medicine Cardiovascular Disease; Registered Nurse; Student in an Organized Health Care Education/Training Program; ADMITTING PHYSICIAN Internal Medicine; ATTENDING PHYSICIAN Internal Medicine; EMERGENCY PHYSICIAN Emergency Medicine; FAMILY PHYSICIAN Family Medicine; OTHER PHYSICIAN Internal Medicine; OTHER PHYSICIAN Internal Medicine Cardiovascular Disease
PROC: 02H63JZ Insertion of Pacemaker Lead into Right Atrium, Percutaneous Approach (ICD-10-PCS; 2024-03-10)
PROC: 02HK3JZ Insertion of Pacemaker Lead into Right Ventricle, Percutaneous Approach (ICD-10-PCS; 2024-03-10)
PROC: 0JH606Z Insertion of Pacemaker, Dual Chamber into Chest Subcutaneous Tissue and Fascia, Open Approach (ICD-10-PCS; 2024-03-10)
DX: I44.1 Atrioventricular block, second degree (principal); E22.2 Syndrome of inappropriate secretion of antidiuretic hormone; K52.1 Toxic gastroenteritis and colitis; I10 Essential (primary) hypertension; E83.42 Hypomagnesemia; E86.1 Hypovolemia; D63.8 Anemia in other chronic diseases classified elsewhere; E86.0 Dehydration; T36.0X5A Adverse effect of penicillins, initial encounter; T36.1X5A Adverse effect of cephalosporins and other beta-lactam antibiotics, initial encounter; Y92.9 Unspecified place or not applicable; Z96.643 Presence of artificial hip joint, bilateral; Z87.891 Personal history of nicotine dependence
CPT/HCPCS: 33208; 71045; 80048; 80053; 83690; 83735; 83930; 83935; 84300; 84443; 84484; 85025; 85027; 86618; 87040; 87045; 87046; 87324; 87427; 87449; 87798; 93005; 93306; 96360; 99284; C1785; C1892; C1898

== ENCOUNTER 2024-08-11 16:27 | Emergency (ER) | payer OTHER, SELFPAY ==
[2024-08-11 16:32] VITALS: BP 110/42; BMI 20.7
[2024-08-11 17:00] VITALS: BP 111/42
[2024-08-11 17:04] LABS: % Basophils 0.2 % (0-2); % Immature Granulocytes 0.2 % (0-0.5); % Lymphocytes 2.4 % (20.5-51.1); % Monocytes 0.2 % (1.7-9.3); Absolute Lymphocytes 0.1 10^3/uL (1.2-3.4); Absolute Neutrophils 4.8 10^3/uL (1.4-6.5); Hemoglobin 10.7 g/dL (12.0-16.0); Mean Corp Hgb Conc. 33.4 g/dL (33.0-37.0); Mean Corpuscular Hgb 29.6 pg (27.0-31.0); Mean Corpuscular Volume 88.4 fL (81.0-99.0); Mean Platelet Volume 9.3 fL (7.4-10.4); Nucleated Red Blood Cells % 0 %; Platelet Count 200 10^3/uL (130-400); Red Blood Cell Count 3.62 10^6/uL (4.20-5.40); Red Cell Dist. Width 12.9 % (11.5-14.5)
[2024-08-11 17:15] LABS: ALT (SGPT) 34 U/L (0-35); AST (SGOT) 60 U/L (14-36); Albumin 4.2 g/dl (3.5-5.0); Alkaline Phosphatase 75 U/L (38-126); Blood Urea Nitrogen 45 mg/dl (7-17); Calcium 9.5 mg/dl (8.4-10.2); Carbon Dioxide 25 mmol/L (22-30); Chloride 97 mmol/L (98-107); Estimated Creatinine Clearance 24 ml/min; Glucose 145 mg/dl (70-99); Potassium 4.3 mmol/L (3.5-5.1); Sodium 135 mmol/L (135-145); Total Bilirubin 0.3 mg/dl (0.2-1.3); Total Protein 6.4 g/dl (6.3-8.2); eGFR 39.55
--- NOTE | 2024-08-11 17:32 | ED.GENMED ---
History of Present Illness
General
Chief Complaint: Abdominal Symptoms
Source: patient and family
Exam Limitations: none
Time Seen by Provider: 08/11/24 16:34
Nursing documentation reviewed up to this point in time: agreed with
History of Present Illness
History of Present Illness:
89 female presents with nausea vomiting chills woke up today little bit tired which is not uncommon for her went and got a flu and COVID shot around 1130, then had lunch apparently while driving to do some errands developed chills nausea vomiting
EMS was called brought by ambulance given 100 cc of saline and Zofran now feeling much better, no chest pain or shortness of breath, no abdominal pain no headache
Past History
Past History
ED Past Medical History: HTN
ED Past Surgical History: None
Patient has exhibited threatening behavior?: No
Social History
Tobacco: Non-smoker
Alcohol: None
Drug: None
Personal:
Living: alone
Employment: Retired
Review of Systems
Review of Systems
All Other Systems: Not applicable
Constitutional: Reports fatigue and chills
EENT: Reports no symptoms
Respiratory: Reports no symptoms
Cardiac: Reports no symptoms; Denies chest pain
ABD/GI: Reports nausea and vomiting
: Reports no symptoms
Musculoskeletal: Reports no symptoms
Skin: Reports no symptoms
Phy Exam
Physical Exam
Physical Exam:
Physical Exam
General: no apparent distress, not acutely ill
Neck: Lips are moist no tongue bite
Heart: s1/s2 regular rate and rhythm, no murmur. equal radial pulses.
Lungs: no acute respiratory distress. clear bilaterally
Abdomen: Soft nontender
Neuro: alert and oriented. no focal neurological deficits
Skin: no rash
Psychiatric: well kept. interactive and cooperative
Extremities: no edema.
Course
Orders/Labs/Results
Orders:
Orders
08/11/24 16:44
Electrocardiogram (*1) Urgent
Reason for Study: Chest Pain
Cardiac Monitoring- Treatment ONCE
IV Insert/Care/Rem.- Treatment PRN
08/11/24 16:45
EKG- Treatment ONCE
08/11/24 16:50
Complete Blood Count/With Diff Urgent
Comprehensive Metabolic Panel Urgent
Lipase Urgent
08/11/24 17:23
0.9% Sodium Chloride 1000 ml [Nss] 1,000 ml IV BOLUS
Acetaminophen [Tylenol] 650 mg PO NOW STA
Abnormal Lab Results
08/11/24
16:50
RBC 3.62 L 10^6/uL
(4.20-5.40)
Hgb 10.7 L g/dL
(12.0-16.0)
Hct 32.0 L %
(37.0-47.0)
Absolute Lymphs (auto) 0.1 L 10^3/uL
(1.2-3.4)
Absolute Monos (auto) 0.0 L 10^3/uL
(0.1-0.6)
Neutrophils % 97.0 H %
(42.2-75.2)
Lymphocytes % 2.4 L %
(20.5-51.1)
Monocytes % 0.2 L %
(1.7-9.3)
Chloride 97 L mmol/L
(98-107)
BUN 45 H mg/dl
(7-17)
Creatinine 1.3 H mg/dL
(0.6-1.0)
Glucose 145 H mg/dl
(70-99)
AST 60 H U/L
(14-36)
08/11/24 16:50
08/11/24 16:50
Vital Signs
Initial and Last Documented VS:
Initial Vital Signs
Temp Pulse Resp BP Pulse Ox
99.3 F 91 20 110/42 97
08/11/24 16:32 08/11/24 16:32 08/11/24 16:32 08/11/24 16:32 08/11/24 16:32
Last Documented Vital Signs
Temp Pulse Resp BP Pulse Ox
99.3 F 88 22 105/41 96
08/11/24 16:32 08/11/24 18:00 08/11/24 18:00 08/11/24 18:00 08/11/24 18:04
MDM/Problems Addressed
Differential Diagnosis Includes:
Dehydration, reaction to vaccine, bowel obstruction enteritis less likely ACS
MDM/Problems Addressed:
Vomiting chills
Chronic conditions affecting care: HTN
Acute Exacerbation and/or Progression of Chronic Illness: HTN
*Pulse Oximetry
Patient hypoxic: no
*EKG
Interpreted by ED Provider?: Yes
Interpretation: abnormal
Comparison EKG: no comparison EKG present
Heart Rate: 78
Rate: normal
Rhythm: ventricular paced
Interval: normal interval
Ischemia: non-specific ST changes
*Indirect Sales Representative Interpretation
Rate: normal
Interpretation: normal
Rhythm: sinus
*Critical Care Note
Total Time (30-74mins, 75-104mins- exclusive of procedures): Not Applicable
Update Note
Update Note:
Update patient feeling better after Zofran and fluids 100 cc of saline will give her full liter, keep her on a gambling monitor, suspect this is related to her vaccines, her abdomen is soft and nontender
715 patient smiling states she is feeling much better abdomen is soft and not tender
ED Attending Note
-
Portions of this chart may have been created with voice recognition software.� Occasional wrong word or��sound alike� substitutions may have occurred due to the inherent limitations of voice recognition software.
Discharge Plan
Departure
Patient Disposition: Home (Routine Discharge)
Date of Disposition: 08/11/24
Time of Disposition: 19:16
Patient with high blood pressure during this ER visit?: No
Condition: Good
Discharge Problem:
Vomiting
Instructions: Nausea and Vomiting, Adult (DC)
Prescriptions:
New
ondansetron 4 mg tablet,disintegrating
4 mg PO Q8H PRN (Reason: nausea and vomiting) Qty: 10 0RF
No Action
acetaminophen 325 MG tablet
650 mg PO Q4HPRN PRN (Reason: mild pain/VEGA/temp> 100.4F) 0RF
loperamide 2 mg Tablet
2 mg PO Q4HPRN PRN (Reason: diarrhea)
valsartan 160 mg Tablet
160 mg PO DAILY
metoprolol tartrate 25 mg Tablet
25 mg PO BID
Referrals:
Sade Rogers MD [Family Provider] - Next open appointment
Interventions
Interventions:
*Risk Screen - Suicide Last Done: 08/11/24 16:32
*General Assessment Last Done: 08/11/24 16:32
*Neglect/Abuse Screening Last Done: 08/11/24 16:32
ED- Fall Risk Assessment Last Done: 08/11/24 16:32
GJ-Gcozuc-Wudqgonupi Assessment Last Done: 08/11/24 16:56
ED-EENT Assessment Last Done: 08/11/24 17:02
ED- Pulmonary Assessment Last Done: 08/11/24 16:56
ED-Skin Assessment Last Done: 08/11/24 16:56
Discharge Date and Time
Print Language: NIGERIAN
[2024-08-11] MEDS: TYLENOL 650 MG PO (17:35)
[2024-08-11] MEDS: NSS 1000 IV (17:39)
[2024-08-11 18:00] VITALS: BP 105/41
[2024-08-11 18:06] LABS: Lipase 139 U/L (23-300)
[2024-08-11 19:00] VITALS: BP 110/41
[2024-08-11 20:00] VITALS: BP 99/40
[2024-08-11 20:13] VITALS: BP 93/53
== END 2024-08-11 20:20 | disposition home or self-care (01) ==
LOC: EMR 16:27
PROVIDERS: EMERGENCY PHYSICIAN Emergency Medicine; FAMILY PHYSICIAN Family Medicine
DX: R11.2 Nausea with vomiting, unspecified (principal); I10 Essential (primary) hypertension
CPT/HCPCS: 99284; 96360; 96361; 80053; 83690; 85025; 93005